=== PATIENT | female | born 1990 | race African-American/Black ===

== ENCOUNTER 2020-10-20 13:23 | Emergency (ER) | payer MEDICAID ==
[~2020-10-20] VITALS: Ht 165.1 cm; Wt 84.8 kg
--- NOTE | 2020-10-20 13:41 | NUR ---
PATIENT BROTH HERSELF TO THE ER C/O PRODUCTIVE COUGH X1 WEEK "GREEN PHLEGM" C/O SOB LAST NIGHT, PATIENT IS SMOKER. WILL MONITORING.
[2020-10-20] MEDS ORDERED: ACETAMINOPHEN ES 500 MG TABLET ONE (14:11)
[2020-10-20] MEDS ORDERED: ACETAMINOPHEN ES 500 MG TABLET PO ONE (14:30)
[2020-10-20 14:34] LABS: BILIRUBIN,URINE Negative (NEGATIVE); COLOR,URINE YELLOW (YELLOW); LEUKOCYTE ESTERASE ,URINE Small (NEGATIVE); NITRITE, URINE Negative (NEGATIVE); PROTEIN,URINE Negative (NEGATIVE); UGLUCOSE Negative (NEGATIVE); UROBILINOGEN,URINE 0.2 EU/dL (0.2)
[2020-10-20 14:35] LABS: PH,URINE >9.0 (5.0-8.0)
[2020-10-20 14:36] LABS: BACTERIA,URINE Few /HPF (None Seen); RBC,URINE 0-2 /HPF (0-2); SQUAMOUS EPITHELIAL CELL,UR Few /HPF (None Seen)
--- NOTE | 2020-10-20 15:09 | NUR ---
received a call from the lab regarding covid 19 result "negative".
--- NOTE | 2020-10-20 16:55 | NUR ---
The patient alert and oriented x4. Denies pain. In room air and denies SOB. Oxygen saturation in room air is at 100%. Patient discharged to home in stable condition. Written and verbal after care instructions given. Patient verbalizes understanding of instruction.
[2020-10-20 16:56] VITALS: BP 121/66
== END 2020-10-20 16:56 | disposition home or self-care (01) ==
LOC: ER 13:23
DX: O99.511 Diseases of the respiratory system complicating pregnancy, first trimester (principal); J06.9 Acute upper respiratory infection, unspecified; Z3A.18 18 weeks gestation of pregnancy; Z20.822 Contact with and (suspected) exposure to COVID-19; J45.909 Unspecified asthma, uncomplicated; O99.332 Smoking (tobacco) complicating pregnancy, second trimester
CPT/HCPCS: 76805; 81001; 84703; 87086; 87426; 99284; C9803